=== PATIENT | female | born 1965 | race Caucasian/White ===

== ENCOUNTER 2020-07-17 08:29 | Outpatient (CLI) | payer OTHER, SELFPAY ==
--- NOTE | ~2020-07-17 | MM_ITS ---
EXAMINATION: MM screening [facility] BI w josi HISTORY: Screening mammogram TECHNIQUE: Craniocaudal and mediolateral oblique 3-D tomosynthesis images were obtained and synthetic 2-D images were generated. CAD analysis was submitted and interpreted. COMPARISON: 03/11/2019 diagnostic right digital mammogram 02/25/2019, 02/02/2018, 12/30/2016 bilateral digital screening mammogram examinations BREAST PARENCHYMAL COMPOSITION: There are scattered areas of fibroglandular density. FINDINGS: There is no evidence of suspicious mass, calcification, or architectural distortion to sugg est malignancy in either breast. There has been no suspicious interval change. IMPRESSION: 1. No mammographic evidence of malignancy. 2. Recommend routine screening mammography in one year. BI-RADS Category 1: Negative Reviewed, dictated and finalized at location A.
== END 2020-07-17 08:30 | disposition home or self-care (01) ==
LOC: ANHIMG 08:30
PROVIDERS: PCP Internal Medicine; Visit Provider Obstetrics & Gynecology
DX: Z12.31 Encounter for screening mammogram for malignant neoplasm of breast (principal)
CPT/HCPCS: 77063; 77067

== ENCOUNTER 2021-08-16 07:45 | Outpatient (CLI) | payer OTHER, SELFPAY ==
--- NOTE | ~2021-08-16 | MM_ITS ---
EXAMINATION: MM screening [facility] BI w josi HISTORY: Screening TECHNIQUE: Craniocaudal and mediolateral oblique 3-D tomosynthesis images were obtained and synthetic 2-D images were generated. CAD analysis was submitted and interpreted. COMPARISON: Comparison to multiple prior studies sequentially, with oldest reviewed study dated 10/31. BREAST PARENCHYMAL COMPOSITION: There are scattered areas of fibroglandular density. FINDINGS: There is no evidence of suspicious mass, calcification, or architectural distortion to sugg est malignancy in either breast. There has been no suspicious interval change. IMPRESSION: 1. No mammographic evidence of malignancy. 2. Recommend routine screening mammography in one year. BI-RADS Category 1: Negative Reviewed, dictated and finalized at location A.
== END 2021-08-16 07:46 | disposition home or self-care (01) ==
PROVIDERS: PCP Internal Medicine; Visit Provider Obstetrics & Gynecology
DX: Z12.31 Encounter for screening mammogram for malignant neoplasm of breast (principal)
CPT/HCPCS: 77063; 77067

== ENCOUNTER 2022-06-06 00:25 | Day surgery (SDC) | payer OTHER, SELFPAY ==
[2022-05-21 15:15] VITALS: BMI 26.6
--- NOTE | 2022-06-05 14:26 | PM.HPGS ---
History of Present Illness History of Present Illness Consent: Risks, benefits, and alternatives have been discussed and questions answered. Patient agrees to proceed with procedure. Chief complaint: change in bowel habits Narrative: Mariana Ann is a 57 year old female Review of Systems Review of Systems: All systems reviewed & are unremarkable except as noted in HPI and below PMFSH Family History Family History Other Family history of malignant neoplasm of breast Family history of malignant neoplasm of urinary bladder Family history of malignant neoplasm of uterus Social History Social History Smoking status: Never smoker Alcohol intake: never Substance use: never Substance use type: does not use Living arrangements: with family Spiritual care concerns: No Meds Home Medications and Allergies Home Medications Medication Instructions Recorded Confirmed Type sodium sul 1.479 gram-potas ch See Rx Instructions PO PER PKG DIR 04/12/22 05/21/22 Rx 0.188 gram-magnes sul 0.225 gram #24 tabs tablet (Sutab) cyanocobalamin (vitamin B-12) 1 ml subcut MONTHLY 05/21/22 05/21/22 History 1,000 mcg/mL injection solution meloxicam 7.5 mg tablet 1 tablet PO PRN PRN Pain 05/21/22 05/21/22 History Allergies Allergy/AdvReac Type Severity Reaction Status Date / Time Sulfa (Sulfonamide Allergy Unknown Rash Verified 06/06/22 06:24 Antibiotics) Exam Resp: Auscultation: clear to auscultation bilaterally Cardio: Rate: regular rate Rhythm: regular rhythm GI: GI Palp: Yes Soft to palpation and No Tenderness to palpation present (GI)
[2022-06-06 06:25] VITALS: BP 120/82; PULSE 81; RESP 20; TEMP 36.3; O2SAT 98; BMI 27.6
[2022-06-06] MEDS: LACTATED RINGERS 1,000 ML 150 ML IV CONT (06:37)
[2022-06-06 07:45] VITALS: BP 120/71; PULSE 73; RESP 19; O2SAT 100
--- NOTE | 2022-06-06 07:51 | WPDANESEPPF ---
Anes - Initial Pre Proc Eval Procedure: Operation Date: 06/06/22 07:30 Proposed Procedures p Colonoscopy - Liu Russ MD Date/Time: 06/06/22 07:51 Surgeon: Liu Russ MD Pre Op Diagnosis: change in bowel habits Patient Data Age: 57 Gender: F Height: 1.68 m Weight: 77.8 kg Last Vital Signs Temp 97.3 F L 06/06/22 06:25 Pulse 73 06/06/22 07:45 Resp 19 06/06/22 07:45 BP 120/71 06/06/22 07:45 Pulse Ox 100 06/06/22 07:45 O2 Del Method Room Air 06/06/22 07:45 Allergies Allergy/AdvReac Type Severity Reaction Status Date / Time Sulfa (Sulfonamide Allergy Unknown Rash Verified 06/06/22 06:24 Antibiotics) Home Medications Medication Instructions Recorded Confirmed Type sodium sul 1.479 gram-potas ch See Rx Instructions PO PER PKG DIR 04/12/22 05/21/22 Rx 0.188 gram-magnes sul 0.225 gram #24 tabs tablet (Sutab) cyanocobalamin (vitamin B-12) 1 ml subcut MONTHLY 05/21/22 05/21/22 History 1,000 mcg/mL injection solution meloxicam 7.5 mg tablet 1 tablet PO PRN PRN Pain 05/21/22 05/21/22 History Patient hx anesthesia problems: none Family hx anesthesia problems: none Results Review: All pre-operative results and documents have been reviewed as part of the pre-operative evaluation. [facility] Family History Family History Other Family history of malignant neoplasm of breast Family history of malignant neoplasm of urinary bladder Family history of malignant neoplasm of uterus Social History Social History Smoking status: Never smoker Alcohol intake: never Substance use: never Substance use type: does not use Living arrangements: with family Spiritual care concerns: No Anes - Eval Final PreProcedure Day of Procedure 06/06/22 07:51 Patient weight: normal Heart: regular rate and rhythm Lungs: clear to auscultation Airway: Mallampati scale class II Neurological: alert and oriented Last oral intake: >/= 8 hours ASA classification: II Emergent: no Anesthetic plan: proceed Anesthesia type and monitoring: general GIVS and standard monitoring Results Review: All pre-operative results and documents have been reviewed as part of the pre-operative evaluation. Informed Consent: The patient's anesthetic plan and its attendant risks and benefits were discussed with the patient/family/POA. Questions were solicited and answers provided to the satisfaction of the patient/family/POA.
[2022-06-06 07:55] VITALS: BP 114/80; PULSE 71; RESP 17; O2SAT 100
[2022-06-06 08:05] VITALS: BP 116/78; PULSE 70; RESP 18; O2SAT 100
== END 2022-06-06 08:12 | disposition home or self-care (01) ==
PROVIDERS: PCP Internal Medicine; Visit Provider Internal Medicine Gastroenterology
PROC: 0DJD8ZZ Inspection of Lower Intestinal Tract, Via Natural or Artificial Opening Endoscopic (ICD-10-PCS; CPT 45378; principal; 2022-06-06 07:30)
DX: R19.4 Change in bowel habit (principal); D12.0 Benign neoplasm of cecum; K63.5 Polyp of colon; K57.30 Diverticulosis of large intestine without perforation or abscess without bleeding
CPT/HCPCS: 45380; 88305; J2704; J7120

== ENCOUNTER 2022-09-30 14:38 | Outpatient (CLI) | payer OTHER, SELFPAY ==
--- NOTE | ~2022-09-30 | MM_ITS ---
EXAMINATION: MM screening [facility] BI w josi HISTORY: Screening TECHNIQUE: Craniocaudal and mediolateral oblique 3-D tomosynthesis images were obtained and synthetic 2-D images were generated. CAD analysis was submitted and interpreted. COMPARISON: Comparison to multiple prior studies sequentially, with oldest reviewed study dated 12/30. BREAST PARENCHYMAL COMPOSITION: Breast composed of scattered areas of fibroglandular density FINDINGS: There is no evidence of suspicious mass, calcification, or architectural distortion to sugg est malignancy in either breast. There has been no suspicious interval change. IMPRESSION: 1. No mammographic evidence of malignancy. 2. Recommend routine screening mammography in one year. BI-RADS Category 1: Negative Reviewed, dictated and finalized at location A.
== END 2022-09-30 14:39 | disposition home or self-care (01) ==
LOC: ANHIMG 14:40
PROVIDERS: PCP Family Medicine; Visit Provider Obstetrics & Gynecology
DX: Z12.31 Encounter for screening mammogram for malignant neoplasm of breast (principal)
CPT/HCPCS: 77063; 77067

== ENCOUNTER 2023-10-21 11:41 | Outpatient (CLI) | payer OTHER, SELFPAY ==
--- NOTE | ~2023-10-21 | MR_ITS ---
EXAMINATION: MRA brain wo con DATE: 10/21/2023 14:43 INDICATION: Trigeminal neuralgia. TECHNIQUE: Magnetic resonance angiography (MRA) of the brain was performed without intravenous contra st with T1-weighted SPGR by the 3D [id number] technique. Maximum intensity projection 3D-reconstr uctions were obtained. COMPARISON: Brain MRI 10/21/2023 FINDINGS: Left vertebral artery is dominant. There is no significant stenosis of basilar artery or the posterio r cerebral arteries. There is no significant stenosis of the intracranial internal carotid arteries o r anterior or middle cerebral arteries. Anterior communicating artery is normal. The posterior commun icating arteries are normal. There is no aneurysm. The trigeminal nerves are normal. IMPRESSION: 1. Normal trigeminal nerves. No vascular loop compression. Reviewed, dictated and finalized at location E. MANAGER
--- NOTE | ~2023-10-21 | MR_ITS ---
EXAMINATION: MR cervical spine wo/w con DATE: 10/21/2023 14:43 INDICATION: Anesthesia of skin. Trigeminal neuralgia. TECHNIQUE: Magnetic resonance imaging (MRI) of the cervical spine was performed without intravenous c ontrast. Sequences included sagittal T2-weighted FSE, sagittal T2-weighted FS FSE, sagittal T1-weight ed FSE, axial MERGE and axial T2-weighted FSE. COMPARISON: None FINDINGS: 1 mm retrolisthesis C3 on C4. 1.5 mm retrolisthesis C5 on C6. Alignment is otherwise normal. Vertebr al body heights are normal. T1 and T2 hyperintense hemangioma at C3 and C7. Mild fibrovascular degene rative endplate changes on the right at C5-C6. Bone marrow signal intensity is otherwise normal. Mode rate disc height loss at C5-C6 and C6-C7 and mild disc height loss at C3-C4. Cord signal intensity is normal. No abnormally enhancing lesions identified. The following disc levels are specifically discu ssed: C2-C3: The disc does not extend beyond the endplate margin. There is no uncovertebral joint osteoarth ritis. There is mild bilateral facet joint osteoarthritis. There is no neural foraminal stenosis. The re is no central canal stenosis. C3-C4: Disc is mildly bulging. There is mild right and mild to moderate left uncovertebral joint oste oarthritis. There is mild bilateral facet joint osteoarthritis. There is no neural foraminal stenosis . There is mild central canal stenosis. C4-C5: The disc does not extend beyond the endplate margin. There is no uncovertebral joint osteoarth ritis. There is mild bilateral facet joint osteoarthritis. There is no neural foraminal stenosis. The re is no central canal stenosis. C5-C6: Disc is bulging. There is moderate bilateral uncovertebral joint osteoarthritis. There is mild bilateral facet joint osteoarthritis. There is mild bilateral neural foraminal stenosis. There is mi ld central canal stenosis. C6-C7: Disc is mildly bulging. There is moderate bilateral uncovertebral joint osteoarthritis. There is mild bilateral facet joint osteoarthritis. There is mild bilateral neural foraminal stenosis. Ther e is minimal central canal stenosis. C7-T1: The disc does not extend beyond the endplate margin. There is no uncovertebral joint osteoarth ritis. There is moderate bilateral facet joint osteoarthritis. There is no neural foraminal stenosis. There is no central canal stenosis. IMPRESSION: 1. Moderate cervical spondylosis. Reviewed, dictated and finalized at location A. TER MOLDER
--- NOTE | ~2023-10-21 | MR_ITS ---
EXAMINATION: MR brain/brain stem wo/w con DATE: 10/21/2023 14:43 INDICATION: Trigeminal neuralgia. TECHNIQUE: Magnetic resonance imaging (MRI) of the brain and brainstem was performed without and with 14 mL MultiHance intravenous contrast. COMPARISON: None. FINDINGS: There are scattered areas of nonspecific increased T2-weighted signal intensity in the cere bral white matter. There is no intracranial hemorrhage, acute infarction, or abnormal intracranial ma ss lesion. The ventricles are normal in size. The trigeminal nerves are normal. The orbits are normal . The paranasal sinuses are clear. The internal auditory canals and inner ears, tympanic cavities, an d mastoid air cells are normal. IMPRESSION: 1. Normal trigeminal nerves. No vascular loop compression. 2. Mild nonspecific cerebral white matter disease, which likely represents chronic small vessel ische ibis disease. Reviewed, dictated and finalized at location E. WDOWN OPERATOR IMPRESSION: 1. Normal trigeminal nerves. No vascular loop compression. 2. Mild nonspecific cerebral white matter disease, which likely represents electromyographic technician nick small vessel ischemic disease.
--- NOTE | ~2023-10-21 | MR_ITS ---
EXAMINATION: MR thoracic spine wo/w con DATE: 10/21/2023 14:43 INDICATION: Anesthesia of skin TECHNIQUE: Magnetic resonance imaging (MRI) of the thoracic spine was performed without and with 14mL Multihance intravenous contrast. Sagittal localizer T1-weighted FSE of the cervicothoracic spine was obtained. Sequences included sagittal T2-weighted FSE, sagittal T2-weighted FS FSE, sagittal T1-weig hted FSE and axial T1-weighted SE. Postcontrast sequences included axial T2-weighted FSE, sagittal T1 -weighted FS FSE, and axial T1-weighted FS SE. COMPARISON: None FINDINGS: Alignment is normal.Vertebral body heights are normal.There are T1 and T2 hyperintense hemangiomas at T8 and L1.Marrow signal is otherwise normal.There is mild disc height loss with small central disc p rotrusion resulting in mild central canal stenosis at T7-T8. Additional mild disc height loss and mil d disc bulge resulting in mild central canal stenosis at L1-L2.Minimal disc height loss at T8-T9. The remainder of the central canal is widely patent. There is mild scattered thoracic facet osteoarthrit is with no neural foraminal stenosis. There is normal spinal cord signal with no abnormally enhancing cord lesions. The conus terminates at L1-L2. Paravertebral soft tissues are unremarkable. IMPRESSION: 1. Mild spondylosis at T7-T8, otherwise minimal. Reviewed, dictated and finalized at location A. IVING COORDINATOR
== END 2023-10-21 11:42 ==
PROVIDERS: PCP Family Medicine; Visit Provider Student in an Organized Health Care Education/Training Program
DX: G50.0 Trigeminal neuralgia (principal); R20.0 Anesthesia of skin; M54.6 Pain in thoracic spine; M47.894 Other spondylosis, thoracic region; R90.82 White matter disease, unspecified
CPT/HCPCS: 70544; 70553; 72156; 72157; A9577

== ENCOUNTER 2024-02-23 07:15 | Outpatient (CLI) | payer OTHER, SELFPAY ==
--- NOTE | ~2024-02-23 | MM_ITS ---
EXAMINATION: MM screening [facility] BI w josi HISTORY: Screening mammogram TECHNIQUE: Craniocaudal and mediolateral oblique 3-D tomosynthesis images were obtained and synthetic 2-D images were generated. CAD analysis was submitted and interpreted. COMPARISON: 09/30/2022, 08/16/2021 bilateral screening mammogram examinations BREAST PARENCHYMAL COMPOSITION: There are scattered areas of fibroglandular density. FINDINGS: New approximately 7.5 mm irregular high density mass is noted in the posterior upper outer right breast. Diagnostic right mammogram and right breast ultrasound examination are recommended. No other suspicious mass or architectural distortion, malignant calcification, skin thickening or ret raction of either breast is noted. IMPRESSION: 1. New suspicious 7.5 mm irregular high density mass in posterior upper outer right breast. Diagnosti c right mammogram and right breast ultrasound examination are recommended. 2. Diagnostic right mammogram and right breast ultrasound examination are recommended BI-RADS Category 0: Incomplete: Needs additional imaging evaluation. Reviewed, dictated and finalized at location A. IMPRESSION: 1. New suspicious 7.5 mm irregular high density mass in posterior upper outer r ight breast. Diagnostic right mammogram and right breast ultrasound examination are recommended. 2. Diagnostic right mammogram and right breast ultrasound examination are recom mended BI-RADS Category 0: Incomplete: Needs additional imaging evaluation.
== END 2024-02-23 07:16 | disposition home or self-care (01) ==
LOC: ANHIMG 07:16
PROVIDERS: PCP Family Medicine; Visit Provider Obstetrics & Gynecology
DX: Z12.31 Encounter for screening mammogram for malignant neoplasm of breast (principal); R92.8 Other abnormal and inconclusive findings on diagnostic imaging of breast
CPT/HCPCS: 77063; 77067

== ENCOUNTER 2024-03-01 10:15 | Outpatient (CLI) | payer OTHER, SELFPAY ==
--- NOTE | ~2024-03-01 | MMUS_ITS ---
EXAMINATION: MM diagnostic [facility] RT w josi, US breast RT limited HISTORY: Follow-up right breast mass TECHNIQUE: Additional 3-D tomosynthesis images of the right breast were performed and synthetic 2-D i mages were generated. CAD analysis was submitted and interpreted. High resolution Limited right breas t ultrasound was performed. COMPARISON: Comparison to multiple prior studies sequentially, with oldest reviewed study dated 02/25. BREAST PARENCHYMAL COMPOSITION: Not dense: There are scattered areas of fibroglandular density. FINDINGS: MAMMOGRAPHIC FINDINGS: There is an irregular shaped mass in the upper outer quadrant of the right breast posteriorly which i s persistent with spot compression and mediolateral views. ULTRASOUND: Limited right breast ultrasound: At 10:00, 8 cm from the nipple is an irregular shaped hypoechoic 9 m m mass with parallel orientation, no significant posterior features and no internal vascularity. Ther e is corresponds to the area of mammographic abnormality. IMPRESSION: 1. Irregular shaped 9 mm right breast mass at 10:00, 8 cm from the nipple. 2. Ultrasound-guided right breast biopsy recommended. BI-RADS category 4, suspicious findings. Reviewed, dictated and finalized at location A. IMPRESSION: 1. Irregular shaped 9 mm right breast mass at 10:00, 8 cm from the nipple. 2. Ultrasound-guided right breast biopsy recommended. BI-RADS category 4, suspicious findings.
== END 2024-03-01 10:16 | disposition home or self-care (01) ==
LOC: CHSIMG 10:16
PROVIDERS: PCP Family Medicine; Visit Provider Obstetrics & Gynecology
DX: R92.8 Other abnormal and inconclusive findings on diagnostic imaging of breast (principal)
CPT/HCPCS: 76642; 77061; 77065; G0279